=== PATIENT | female | born 1960 | race Caucasian/White ===

== ENCOUNTER 2020-11-25 13:16 | Emergency (ER) | payer MEDICAID ==
[~2020-11-25] VITALS: Ht 160 cm; Wt 105.8 kg
[~2020-11-25 13:16] MED LIST: ACET-1008 PO; AMI25T PO; CITA20TA24 PO; CITA40TA22 PO; EXEM25TA5 PO; FLUT100D2 IH; LEVA15HF4 IH; LORA10TA7 PO; LYR75C PO; OMEP-84 PO
[2020-11-25 13:52] VITALS: BP 132/84
[2020-11-25] MEDS ORDERED: LIDOcaine 2% 10ml TOPICAL JELLY (Urojet) TP ONE (15:55)
[2020-11-25 17:22] LABS: CLARITY,URINE CLOUDY (Clear); COLOR,URINE YELLOW (Yellow); GLUCOSE, URINE NEGATIVE (Neg); KETONES,URINE NEGATIVE (Neg); LEUKOCYTE ESTERASE ,URINE LARGE (Neg); NITRITES, URINE POSITIVE (Neg); OCCULT BLOOD,URINE MODERATE (Neg); PROTEIN,URINE 100 mg/dl (Neg); UROBILINOGEN,URINE 0.2 E.U/dL (0.2-1.0)
[2020-11-25 17:24] LABS: UA COLLECTION TYPE STRAIGHT CATH
[2020-11-25 17:40] LABS: BACTERIA,URINE 2+ /HPF (Neg); MUCUS STRANDS MODERATE /LPF (Neg); SQUAMOUS EPITHELIAL CELL,UR MANY /LPF (FEW)
[2020-11-25 17:41] LABS: WBC,URINE TNTC /HPF (0-4)
[2020-11-25] MEDS ORDERED: CEFD300C3 PO (21:01)
== END 2020-11-25 17:07 | disposition home or self-care (01) ==
LOC: ER 13:16
DX: Z44.8 Encounter for fitting and adjustment of other external prosthetic devices (principal); R11.0 Nausea; M54.5 Low back pain; J44.9 Chronic obstructive pulmonary disease, unspecified; K21.9 Gastro-esophageal reflux disease without esophagitis; G89.29 Other chronic pain; F41.9 Anxiety disorder, unspecified; Z98.890 Other specified postprocedural states; Z56.0 Unemployment, unspecified; Z88.5 Allergy status to narcotic agent; Z88.8 Allergy status to other drugs, medicaments and biological substances; Z79.2 Long term (current) use of antibiotics; Z79.899 Other long term (current) drug therapy
CPT/HCPCS: 51702; 81001; 87077; 87088; 87186; 99284

== ENCOUNTER 2020-12-16 19:14 | Emergency (ER) | payer MEDICAID ==
[~2020-12-16] VITALS: Ht 160 cm; Wt 93.0 kg
--- NOTE | 2020-12-16 21:57 | NUR ---
pt tired of waiting and decided to go home and follow up with PMD on the 12/23, getting referral to urology, pt denies UTI sx, no fever, "but horta has light blue tinge in the tubing and chunks this time", pt was treated for UTI on 11/25, compliant with taking antibiotics, pt c/o being constipated, educated pt on diet and OTC med for constipation.
[2020-12-16 22:01] VITALS: BP 151/104
== END 2020-12-16 22:07 | disposition left against medical advice (07) ==
LOC: ER 19:15
DX: T85.9XXA Unspecified complication of internal prosthetic device, implant and graft, initial encounter (principal); Z53.21 Procedure and treatment not carried out due to patient leaving prior to being seen by health care provider; Y83.9 Surgical procedure, unspecified as the cause of abnormal reaction of the patient, or of later complication, without mention of misadventure at the time of the procedure

== ENCOUNTER 2021-01-05 16:07 | Emergency (ER) | payer MEDICAID ==
[~2021-01-05] VITALS: Ht 160 cm; Wt 108.4 kg
[2021-01-05 16:12] VITALS: BP 165/79
[2021-01-05 16:52] LABS: CLARITY,URINE CLOUDY (Clear); COLOR,URINE YELLOW (Yellow); GLUCOSE, URINE NEGATIVE (Neg); KETONES,URINE NEGATIVE (Neg); LEUKOCYTE ESTERASE ,URINE MODERATE (Neg); NITRITES, URINE POSITIVE (Neg); OCCULT BLOOD,URINE MODERATE (Neg); PROTEIN,URINE TRACE mg/dl (Neg); UROBILINOGEN,URINE 0.2 E.U/dL (0.2-1.0)
[2021-01-05 16:57] LABS: UA COLLECTION TYPE FOLEY CATH
[2021-01-05 16:58] LABS: WBC,URINE 20-30 /HPF (0-4)
[2021-01-05 16:59] LABS: AMORPHOUS URATES 1+; BACTERIA,URINE 1+ /HPF (Neg); CAL OXALATE CRYSTALS FEW /HPF (NEGATIVE); MUCUS STRANDS FEW /LPF (Neg); SQUAMOUS EPITHELIAL CELL,UR FEW /LPF (FEW)
[2021-01-05] MEDS ORDERED: CEPH-585 PO (17:32)
== END 2021-01-05 21:55 | disposition home or self-care (01) ==
LOC: ER 16:09
DX: N39.0 Urinary tract infection, site not specified (principal); J44.9 Chronic obstructive pulmonary disease, unspecified; K21.9 Gastro-esophageal reflux disease without esophagitis; E11.9 Type 2 diabetes mellitus without complications; G89.29 Other chronic pain; F41.9 Anxiety disorder, unspecified; Z87.440 Personal history of urinary (tract) infections; Z98.890 Other specified postprocedural states; Z56.0 Unemployment, unspecified; Z88.5 Allergy status to narcotic agent; Z88.8 Allergy status to other drugs, medicaments and biological substances; Z79.2 Long term (current) use of antibiotics; Z79.899 Other long term (current) drug therapy
CPT/HCPCS: 81001; 87077; 87088; 87186; 99283

== ENCOUNTER 2022-03-22 13:18 | Emergency (ER) | payer MEDICAID ==
[~2022-03-22] VITALS: Ht 160 cm; Wt 109.1 kg
[2022-03-22 14:40] LABS: BASOPHILS # (AUTO) 0.1 X10'3 (0-0.2); BASOPHILS % (AUTO) 1.1 % (0-1); EOSINOPHILS # (AUTO) 0.1 X10'3 (0-0.9); EOSINOPHILS % (AUTO) 1.3 % (0-6); HEMATOCRIT 44.5 % (35.0-45.0); HEMOGLOBIN 14.5 g/dl (12.0-16.0); MEAN CORPUSCULAR HEMOGLOBIN 26.7 PG (27.0-31.0); MEAN CORPUSCULAR HGB CONC 32.6 g/dL (33.0-36.5); MEAN CORPUSCULAR VOLUME 82.1 FL (78-98); MEAN PLATELET VOLUME 9.1 FL (7.4-10.4); MONOCYTES % (AUTO) 10.6 % (2-12); NEUTROPHILS # (AUTO) 5.4 X10'3 (1.8-7.7); PLATELET COUNT 351 X10'3 (140-440); RED BLOOD COUNT 5.42 X10'6 (4.20-5.60); RED CELL DISTRIBUTION WIDTH 13.6 % (11.5-14.5); WHITE BLOOD COUNT 9.7 X10'3 (4.5-11.0)
[2022-03-22 14:51] LABS: ALANINE AMINOTRANSFERASE 28 U/L (12-78); ALBUMIN 3.6 G/DL (3.4-5.0); ALKALINE PHOSPHATASE 78 IU/L (46-116); ANION GAP 8 (8-16); ASPARTATE AMINO TRANSFERASE 19 U/L (10-37); BILIRUBIN,TOTAL 0.2 MG/DL (0.1-1.0); BLOOD UREA NITROGEN 11 MG/DL (7-18); BUN/CREATININE RATIO 15.3 (6.6-38.0); CALCIUM 9.3 MG/DL (8.5-10.1); CHLORIDE 104 MMOL/L (99-107); CREATININE 0.72 MG/DL (0.40-0.90); GLUCOSE 111 MG/DL (70-104); POTASSIUM 3.8 MMOL/L (3.5-5.1); SODIUM 138 MMOL/L (135-145); TOTAL CARBON DIOXIDE 26.3 MMOL/L (24-32); TOTAL PROTEIN 7.2 G/DL (6.4-8.2); eGFR 82 ML/MIN
[2022-03-22 14:55] VITALS: BP 151/98
[2022-03-22] MEDS ORDERED: PRED20TA PO (15:08)
[2022-03-22] MEDS ORDERED: NITR100C6 PO (15:08)
[2022-03-22 15:15] LABS: CLARITY,URINE CLEAR (Clear); GLUCOSE, URINE NEGATIVE (Neg); KETONES,URINE NEGATIVE (Neg); LEUKOCYTE ESTERASE ,URINE SMALL (Neg); NITRITES, URINE NEGATIVE (Neg); OCCULT BLOOD,URINE NEGATIVE (Neg); PH,URINE 6.5 (4.8-8.0); PROTEIN,URINE NEGATIVE (Neg); UROBILINOGEN,URINE 0.2 E.U/dL (0.2-1.0)
[2022-03-22 15:17] LABS: COLOR,URINE STRAW (Yellow); UA COLLECTION TYPE CLN CATCH MIDSTREAM
[2022-03-22 15:27] LABS: RBC,URINE NONE SEEN /HPF (0-2); WBC,URINE 20-30 /HPF (0-4)
[2022-03-22 15:28] LABS: BACTERIA,URINE FEW /HPF (Neg); MUCUS STRANDS NONE SEEN /LPF (Neg); SQUAMOUS EPITHELIAL CELL,UR FEW /LPF (FEW)
== END 2022-03-22 15:46 | disposition home or self-care (01) ==
LOC: ER 13:19
DX: N39.0 Urinary tract infection, site not specified (principal); R06.02 Shortness of breath; J44.9 Chronic obstructive pulmonary disease, unspecified; K21.9 Gastro-esophageal reflux disease without esophagitis; G89.29 Other chronic pain; M54.50 Low back pain, unspecified; Z88.5 Allergy status to narcotic agent; Z88.6 Allergy status to analgesic agent; Z98.890 Other specified postprocedural states; Z87.891 Personal history of nicotine dependence; Z56.0 Unemployment, unspecified
CPT/HCPCS: 36415; 71045; 80053; 81001; 83735; 83880; 84484; 85025; 87077; 87088; 87186; 93005; 99285

== ENCOUNTER 2023-05-30 20:05 | Emergency (ER) | payer MEDICAID ==
[~2023-05-30] VITALS: Ht 160 cm; Wt 103.1 kg
[~2023-05-30 20:05] MED LIST changes: +NITR100C6 PO
[2023-05-30 20:32] VITALS: BP 136/95; PULSE 120; RESP 18; TEMP 97.3; O2SAT 96
== END 2023-05-30 21:40 | disposition left against medical advice (07) ==
LOC: ER 20:06
DX: R10.84 Generalized abdominal pain (principal); Z53.21 Procedure and treatment not carried out due to patient leaving prior to being seen by health care provider
CPT/HCPCS: 99281

== ENCOUNTER 2024-06-10 16:39 | Emergency (ER) | payer MEDICAID ==
[~2024-06-10] VITALS: Ht 160 cm; Wt 102.8 kg
[2024-06-10 16:53] VITALS: BP 146/101; PULSE 109; RESP 18; TEMP 97.6; O2SAT 97
[2024-06-10 17:33] LABS: BASOPHILS # (AUTO) 0.1 X10'3 (0-0.2); BASOPHILS % (AUTO) 0.8 % (0-1); EOSINOPHILS # (AUTO) 0.1 X10'3 (0-0.9); EOSINOPHILS % (AUTO) 0.5 % (0-6); HEMOGLOBIN 13.8 g/dl (12.0-16.0); LYMPHOCYTES % (AUTO) 17.1 % (21-51); MEAN CORPUSCULAR HEMOGLOBIN 26.9 PG (27.0-31.0); MEAN CORPUSCULAR HGB CONC 32.9 g/dL (33.0-36.5); MEAN CORPUSCULAR VOLUME 81.7 FL (78-98); MEAN PLATELET VOLUME 9.5 FL (7.4-10.4); MONOCYTES # (AUTO) 1.6 X10'3 (0-0.9); MONOCYTES % (AUTO) 9.4 % (2-12); NEUTROPHILS # (AUTO) 12.5 X10'3 (1.8-7.7); NEUTROPHILS % (AUTO) 72.2 % (42-75); PLATELET COUNT 375 X10'3 (140-440); RED BLOOD COUNT 5.15 X10'6 (4.20-5.60); RED CELL DISTRIBUTION WIDTH 13.6 % (11.5-14.5); WHITE BLOOD COUNT 17.3 X10'3 (4.5-11.0)
[2024-06-10 17:49] LABS: ALANINE AMINOTRANSFERASE 24 U/L (12-78); ALBUMIN 3.6 G/DL (3.4-5.0); ALBUMIN/GLOBULIN RATIO 0.8 (1.1-1.5); ALKALINE PHOSPHATASE 81 IU/L (46-116); ANION GAP 8 (8-16); ASPARTATE AMINO TRANSFERASE 11 U/L (10-37); BILIRUBIN,TOTAL 0.4 MG/DL (0.1-1.0); BLOOD UREA NITROGEN 10 MG/DL (7-18); BUN/CREATININE RATIO 19.6 (10.0-20.0); CHLORIDE 104 MMOL/L (99-107); CREATININE 0.51 MG/DL (0.40-0.90); GLUCOSE 90 MG/DL (70-104); LIPASE 31 U/L (16-77); POTASSIUM 3.7 MMOL/L (3.5-5.1); SODIUM 139 MMOL/L (135-145); TOTAL CARBON DIOXIDE 27.5 MMOL/L (24-32); TOTAL PROTEIN 7.9 G/DL (6.4-8.2); eCRCL 92 ML/MIN; eGFR > 90 ML/MIN
== END 2024-06-11 00:57 | disposition left against medical advice (07) ==
LOC: ER 16:40
DX: R10.30 Lower abdominal pain, unspecified (principal); Z88.5 Allergy status to narcotic agent; Z88.8 Allergy status to other drugs, medicaments and biological substances; Z53.21 Procedure and treatment not carried out due to patient leaving prior to being seen by health care provider
CPT/HCPCS: 36415; 80053; 83690; 85025

== ENCOUNTER 2024-10-28 13:45 | Emergency (ER) | payer MEDICAID ==
[~2024-10-28] VITALS: Ht 160 cm; Wt 99.4 kg
[~2024-10-28 13:45] MED LIST changes: -CITA20TA24 PO; +[UNRECOGNIZED DRUG - CODE] PO
[2024-10-28 13:49] VITALS: BP 145/101; PULSE 83; RESP 16; TEMP 97.2; O2SAT 99
--- NOTE | 2024-10-28 14:04 | Physician Documentation ---
History of Present Illness ~ Chief Complaint: Mouth Pain Stated Complaint: MOUTH BLEEDING Time Seen by MD: 14:01 Primary Medical Doctor: Bethany Romano HPI Patient is seen today with complaints of having a dental extraction earlier today and states it still bleeding. They were concerned that she might need stitches. Patient was just seen and treated by her dentist earlier today. They have no other concern or complaint at this time. Medication Reconciliation Allergies: Coded Allergies: morphine (Verified Allergy, Intermediate, NAUSEA/VOMITING, 06/10/24) ondansetron (Verified Allergy, Unknown, HEADACHE, 06/10/24) Uncoded Allergies: GABEPENTIN (Allergy, Unknown, 11/25/20) Scheduled Amitriptyline Hcl* (Elavil*), 25 MG PO HS, (Reported) Citalopram Hydrobromide (Celexa), 20 MG PO DAILY, (Reported) Citalopram Hydrobromide (Celexa), 40 MG PO DAILY, (Reported) Exemestane (Exemestane), 25 MG PO DAILY, (Reported) Fluticasone Propionate (Flovent 100 Mcg Diskus), 28 PUFF IH BID, (Reported) Levalbuterol Tartrate* (Xopenex Inhaler*), 2 PUFF IH Q6H, (Reported) Loratadine (Loratadine), 10 MG PO DAILY, (Reported) Nitrofurantoin Monohyd/M-Cryst (Macrobid 100 mg Capsule), 1 CAP PO Q12H Pregabalin (LYRICA capsule), 75 MG PO BID, (Reported) Scheduled PRN Acetaminophen* (Tylenol*), 650 MG PO Q6H PRN for pain, (Reported) Omeprazole* (Prilosec*), 20 MG PO DAILY PRN for gerd, (Reported) Past Medical History Past Medical History: Asthma, COPD, GERD, UTI, Diabetes, Chronic Pain, Chronic Back Pain, Anxiety Past Surgical History: noncontributory Other Past Surgical History: Left mastectomy with lymphadenectomy Alcohol Use: None Drug Use: none Lives with: Family Lives In: Home Occupation: unemployed Review of Systems Constitutional: Denies: chills, fever, weakness Eyes: Denies: pain, blurred vision ENT: Denies: ear pain, nose pain, throat pain, mouth pain Respiratory: Denies: cough, shortness of breath Cardiovascular: Denies: chest pain, palpitations Gastrointestinal: Denies: abdominal pain, nausea, vomiting Genitourinary: Denies: burning, dysuria Female Genitalia: Denies: vaginal discharge, pelvic pain Neurological: Denies: headache, dizziness Musculoskeletal: Denies: pain, swelling Integumentary: Denies: rash, lesions Allergic/Immunologic: Denies: hives, itching Hematologic/Lymphatic: Denies: no symptoms reported Psychiatric: Denies: depression, anxiety Physical Exam Vital Signs: Temperature: 97.2, Source: Temporal, Heart Rate: 83, Respiratory Rate: 16, BP: 145/101, Pulse Oximetry: 99, Weight: 99.400 Physical Exam General: Awake and Alert, no acute distress. HEENT: Patient on exam does have what appears to be a recent dental extraction with a small scratch of the gums superiorly to this dental extraction in the left front upper jaw. I do not appreciate any severe or significant active bleeding. There is very minimal bleeding at this time. I do not appreciate any laceration or need for suturing. Conjunctiva pink, Sclera clear, Mucus Membranes moist. Neck: Supple without masses and tenderness. Resp: Unlabored. Lungs clear to auscultation bilaterally. Heart: Regular Rate and rhythm, normal S1 and S2 without murmur, rub or gallop. Extremities: No cyanosis,clubbing or edema. Skin: Warm and Dry. Progress Results/Orders Results/Orders Vital Signs 10/28/24 13:49 Temp 97.2 Pulse 83 Resp 16 B/P (MAP) 145/101 Pulse Ox 99 Medical Decision Making Findings Patient is seen today with complaints of having a dental extraction earlier tod ay and states it still bleeding. They were concerned that she might need stitches. Patient was just seen and treated by her dentist earlier today. They have no other concern or complaint at this time. Patient and I did discuss her recent dental extraction and I was able to console the patient and educate that I do not feel any sutures of her gums or needed at this time. Patient will maintain pressure with gauze to help stop the bleeding. It she will follow up with dentist as needed. Patient will return to ED with any worsening, concerning or changing symptoms. Departure Disposition: HOME / SELF CARE / HOMELESS Impression: Primary Impression: Bleeding post tooth extraction Condition: Stable Discharge Instructions: Mouth Injury, Generic Additional Instructions: Patient and I did discuss her recent dental extraction and I was able to console the patient and educate that I do not feel any sutures of her gums or needed at this time. Patient will maintain pressure with gauze to help stop the bleeding. It she will follow up with dentist as needed. Patient will return to ED with any worsening, concerning or changing symptoms. Referrals: NO PRIMARY CARE PROVIDER (PCP) Signature Scribe Signature: No scribe Attestation: No scribe MYKEL AJ PAC Oct 28, 2024 14:04
== END 2024-10-28 14:12 | disposition home or self-care (01) ==
LOC: ER 13:46
DX: K91.840 Postprocedural hemorrhage of a digestive system organ or structure following a digestive system procedure (principal); E11.9 Type 2 diabetes mellitus without complications; J44.9 Chronic obstructive pulmonary disease, unspecified; K21.9 Gastro-esophageal reflux disease without esophagitis; F41.9 Anxiety disorder, unspecified; Z88.5 Allergy status to narcotic agent; Z98.890 Other specified postprocedural states; Z90.12 Acquired absence of left breast and nipple; Z88.8 Allergy status to other drugs, medicaments and biological substances; Z79.899 Other long term (current) drug therapy; Z56.0 Unemployment, unspecified
CPT/HCPCS: 99281